=== PATIENT | female | born 1980 | race African-American/Black ===

== ENCOUNTER 2016-08-20 10:19 | Emergency (ER) | payer MEDICAID ==
[~2016-08-20] VITALS: Ht 157.5 cm; Wt 77.1 kg
[~2016-08-20 10:19] MED LIST: BLEPH-105 ML OP; IBUPROFEN600 MG ORAL; NKM; ZOFRAN ODT4 MG ORAL
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
[2016-08-20] MEDS ORDERED: Bacitracin Oint UD TOPIC ONE (11:00)
[2016-08-20] MEDS ORDERED: IBUPROFEN600 MG ORAL (12:58)
[2016-08-20] MEDS ORDERED: TRAMADOL HCL50 MG ORAL (12:58)
[2016-08-20 13:00] VITALS: BP 136/84
[2016-08-20 13:10] VITALS: BP 136/84
== END 2016-08-20 13:10 | disposition home or self-care (01) ==
LOC: EMR 11:13
DX: S09.90XA Unspecified injury of head, initial encounter (principal); S00.83XA Contusion of other part of head, initial encounter; S80.212A Abrasion, left knee, initial encounter; S80.211A Abrasion, right knee, initial encounter; S50.312A Abrasion of left elbow, initial encounter; Y08.89XA Assault by other specified means, initial encounter; Y92.9 Unspecified place or not applicable; Y99.8 Other external cause status
CPT/HCPCS: 99282

== ENCOUNTER 2017-04-20 00:50 | Emergency (ER) | payer MEDICAID ==
[~2017-04-20] VITALS: Ht 165.1 cm; Wt 72.6 kg
[~2017-04-20 00:50] MED LIST changes: +TRAMADOL HCL50 MG ORAL
[2017-04-20] MEDS ORDERED: Ketorolac 60mg Inj IM ONE (01:30)
[2017-04-20] MEDS ORDERED: IBUPROFEN600 MG ORAL (01:45)
[2017-04-20] MEDS ORDERED: PSEUDOEPHEDRINE60 MG PO (01:45)
--- NOTE | 2017-04-20 01:45 | Emergency Room Report ---
History of Present Illness General Chief Complaint: Headache Source: Patient Present Illness HPI Is a 36-year-old female with no past medical history. She does have family history of hypertension. Also with preeclampsia. She presents with a headache for the last day or so. Also with a sling and runny nose. No fever or chills. No nausea no vomiting. Tylenol is not helping. Denies any other complaint. No focal deficit. Allergies: Coded Allergies: No Known Allergies (Unverified , 05/11/13) Patient History Past Medical History: see triage record, old chart reviewed Past Surgical History: Pertinent Family History: none Social History: Denies: smoking Now: No Immunizations: other Reviewed Nursing Documentation: PMH: Agreed, PSxH: Agreed Nursing Documentation-PMH Past Medical History: No Stated History Review of Systems Eye: Denies: eye pain, blurred vision ENT: Reports: nose congestion, Denies: ear pain, throat swelling Respiratory: Denies: cough, shortness of breath Cardiovascular: Denies: chest pain, palpitations Gastrointestinal: Denies: abdominal pain, diarrhea, nausea, vomiting Musculoskeletal: Denies: back pain, joint pain Skin: Denies: rash Neurological: Reports: headache, Denies: numbness Endocrine: Denies: increased thirst, increased urine Hematologic/Lymphatic: Denies: easy bruising All Other Systems: negative except mentioned in HPI Physical Exam Vital Signs Date Time Temp Pulse Resp B/P (MAP) Pulse Ox O2 Delivery O2 Flow Rate FiO2 04/20/17 01:10 98.1 76 16 122/76 98 Room Air vitals normal Sp02 EP Interpretation: reviewed, normal General Appearance: well appearing, no apparent distress, alert Head: normocephalic, atraumatic Eyes: bilateral eye PERRL, bilateral eye EOMI ENT: hearing grossly normal, normal pharynx Neck: full range of motion, supple, no meningismus Respiratory: chest non-tender, lungs clear, normal breath sounds Cardiovascular #1: regular rate, rhythm, no murmur Gastrointestinal: normal bowel sounds, non tender, no mass, no organomegaly, no bruit, non-distended Musculoskeletal: back normal, gait/station normal, normal range of motion Psychiatric: mood/affect normal Skin: warm/dry Medical Decision Making Diagnostic Impression: Primary Impression: Sinus headache ER Course Patient with a headache most likely secondary sinus. No evidence of sepsis, TIA or CVA. No evidence of meningitis. We'll discharge home. Last Vital Signs Date Time Temp Pulse Resp B/P (MAP) Pulse Ox O2 Delivery O2 Flow Rate FiO2 04/20/17 01:10 98.1 76 16 122/76 98 Room Air Status: improved Disposition: HOME, SELF-CARE Condition: Stable Scripts Ibuprofen* (MOTRIN*) 600 Mg Tablet 600 MG ORAL THREE TIMES A DAY, #30 TAB 0 Refills Prov: NICKY DESHPANDE M.D. 04/20/17 Pseudoephedrine Hcl* (SUDAFED*) 60 Mg Tablet 60 MG PO Q6H, #20 TAB Prov: NICKY DESHPANDE M.D. 04/20/17 Patient Instructions: Sinus Headache Additional Instructions: Followup with your DrKoby in 7 days. Return if worse. NICKY DESHPANDE M.D. Apr 20, 2017 01:45
[2017-04-20 01:51] VITALS: BP 122/76
== END 2017-04-20 01:51 | disposition home or self-care (01) ==
LOC: EMR 01:25
DX: R51 Headache (principal)
CPT/HCPCS: 96372; 99284

== ENCOUNTER 2017-05-02 12:21 | Emergency (ER) | payer MEDICAID ==
[~2017-05-02] VITALS: Ht 157.5 cm; Wt 80.7 kg
[~2017-05-02 12:21] MED LIST changes: +PSEUDOEPHEDRINE60 MG PO
[2017-05-02 12:36] VITALS: BP 130/85
[2017-05-02] MEDS ORDERED: AMOXICILLIN500 MG ORAL ×2 (12:36→12:43)
--- NOTE | 2017-05-02 13:08 | Emergency Room Report ---
History of Present Illness General Chief Complaint: Earache Source: Patient Present Illness HPI The patient is a 36-year-old female presenting for ear pain. She was seen here 2 weeks prior and diagnosed with sinusitis. She states that the symptoms improved and ear pain began yesterday. Described as an 8/10 dull ache primary to the left ear. She states that hearing has decreased. She denies any radiating pain. She denies any provoking factors. She denies other symptoms including fever, chills, sore throat, cough Allergies: Coded Allergies: No Known Allergies (Unverified , 05/11/13) Patient History Past Medical History: see triage record Pertinent Family History: none Last Menstrual Period: last month Now: No Reviewed Nursing Documentation: PMH: Agreed, PSxH: Agreed Nursing Documentation-PMH Past Medical History: No History, Except For Review of Systems All Other Systems: negative except mentioned in HPI Physical Exam Vital Signs Date Time Temp Pulse Resp B/P (MAP) Pulse Ox O2 Delivery O2 Flow Rate FiO2 05/02/17 12:24 98.2 84 18 136/85 98 Room Air Sp02 EP Interpretation: reviewed, normal General Appearance: no apparent distress, alert, GCS 15, non-toxic Head: normocephalic, atraumatic Eyes: bilateral eye normal inspection, bilateral eye PERRL ENT: hearing grossly normal, normal pharynx, no angioedema, normal voice, other - Bilat TM bulging with erythema Neck: full range of motion, supple/symm/no masses Respiratory: chest non-tender, lungs clear, normal breath sounds, speaking full sentences Cardiovascular #1: regular rate, rhythm, no edema Musculoskeletal: back normal, gait/station normal, normal range of motion, non- tender Neurologic: alert, oriented x3, responsive, motor strength/tone normal, sensory intact, speech normal Psychiatric: judgement/insight normal, memory normal, mood/affect normal, no suicidal/homicidal ideation Skin: normal color, no rash, warm/dry, well hydrated Lymphatic: no adenopathy Medical Decision Making PA Attestation Dr. Anne is my supervising physician. Patient management was discussed with my supervising physician Diagnostic Impression: Primary Impression: Otitis media Qualified Codes: H66.90 - Otitis media, unspecified, unspecified ear ER Course The patient is a 36-year-old female presenting for ear pain Differential diagnosis include but not limited to otitis externa, otitis media, mastoiditis, sinusitis, pharyngitis Physical exam: Vitals within normal limits. No apparent distress HEENT exam: There is bilateral tympanic membrane erythema and bulging. External auditory canal unremarkable. No tenderness to palpation over tragus. No nasal discharge. No tonsillar edema or erythema. No exudate Lungs are clear to auscultation bilaterally The patient will be discharged home with a prescription for amoxicillin and will followup with primary doctor. ER precautions are given Last Vital Signs Date Time Temp Pulse Resp B/P (MAP) Pulse Ox O2 Delivery O2 Flow Rate FiO2 05/02/17 12:36 98.2 75 18 130/85 98 Room Air Status: improved Disposition: HOME, SELF-CARE Condition: Improved Scripts Amoxicillin* (AMOXIL*) 500 Mg Capsule 500 MG ORAL Q12HR, #20 CAP Prov: MARGARET BE 05/02/17 Referrals: NOT CHOSEN IPA/MD,REFERRING (PCP) Patient Instructions: Otitis Media, Adult, Earache Additional Instructions: I discussed my findings with the patient. All questions and concerns have been answered. Treatment and medication compliance have been addressed. I advised the patient that they need to follow up with PMD in 3-5 days. Return to ED if pain remains or worsens, cough worsens or remains, you notice blood in your sputum, you notice wheezing, you experience a fever, or if needed for any reason. Patient verbalized understanding of discharge instructions. MARGARET BE May 02, 2017 13:08
== END 2017-05-02 12:49 | disposition home or self-care (01) ==
LOC: EMR 12:40
DX: H66.93 Otitis media, unspecified, bilateral (principal)
CPT/HCPCS: 99283

== ENCOUNTER 2018-09-21 16:20 | Emergency (ER) | payer MEDICAID ==
[~2018-09-21] VITALS: Ht 157.5 cm; Wt 84.4 kg
[~2018-09-21 16:20] MED LIST changes: +AMOXICILLIN500 MG ORAL
[2018-09-21] MEDS ORDERED: Metoclopramide 10mg/2ml Inj IVP ONE (16:45)
[2018-09-21 17:06] VITALS: BP 143/86
--- NOTE | 2018-09-21 17:07 | NUR ---
ED Nurse Note:pt. c/o headache and nausea , blood and urine was sent to labs, VSS, given IV fluids and meds
[2018-09-21 17:18] LABS: BASOPHILS % (AUTO) 1.5 % (0.0-2.0); EOSINOPHILS % (AUTO) 1.5 % (0.0-3.0); HEMATOCRIT 36.2 % (37.0-47.0); LYMPHOCYTES % (AUTO) 36.5 % (20.0-45.0); MEAN CORPUSCULAR VOLUME 89 FL (80-99); NEUTROPHILS % (AUTO) 55.5 % (45.0-75.0); PLATELET COUNT 173 K/UL (150-450); RED BLOOD COUNT 4.05 M/UL (4.20-5.40); RED CELL DISTRIBUTION WIDTH 12.2 % (11.6-14.8)
[2018-09-21 17:21] LABS: APPEARANCE,URINE CLEAR; BILIRUBIN, URINE NEGATIVE (NEGATIVE); COLOR,URINE PALE YELLOW; GLUCOSE, URINE (UA) NEGATIVE (NEGATIVE); KETONES,URINE NEGATIVE (NEGATIVE); LEUKOCYTE ESTERASE ,URINE NEGATIVE (NEGATIVE); NITRITE,URINE NEGATIVE (NEGATIVE); PH,URINE 6 (4.5-8.0); PROTEIN,URINE NEGATIVE (NEGATIVE); UROBILINOGEN,URINE NORMAL MG/DL (0.0-1.0)
[2018-09-21 17:28] LABS: ANION GAP 7 mmol/L (5-15); BLOOD UREA NITROGEN 4 mg/dL (7-18); CALCIUM 9.3 MG/DL (8.5-10.1); CARBON DIOXIDE 29 MMOL/L (21-32); CHLORIDE 105 MMOL/L (98-107); CREATININE 0.7 MG/DL (0.55-1.30); POTASSIUM 3.4 MMOL/L (3.5-5.1); SODIUM 141 MMOL/L (136-145)
[2018-09-21 17:33] LABS: ALANINE AMINOTRANSFERASE 17 U/L (12-78); ALBUMIN 3.7 G/DL (3.4-5.0); ALBUMIN/GLOBULIN RATIO 1.1 (1.0-2.7); ALKALINE PHOSPHATASE 53 U/L (46-116); ASPARTATE AMINO TRANSFERASE 12 U/L (15-37); BILIRUBIN,TOTAL 0.3 MG/DL (0.2-1.0)
--- NOTE | 2018-09-21 17:35 | Emergency Room Report ---
History of Present Illness General Chief Complaint: Headache Source: Patient Present Illness HPI 37-year-old female presents ED for evaluation. Complaining of headache started 2 days ago. Pain is frontal, throbbing, 6 out of 10, nonradiating. Denies photophobia or blurry vision. Denies nausea or vomiting. Denies neck stiffness. States she's been taking [id number] medication, states symptoms will temporally subsides then returned. Denies fevers or chills. Denies cough or congestion. Denies ear ache or sore throat. No other aggravating relieving factors. Denies any other associated symptoms Allergies: Coded Allergies: No Known Allergies (Unverified , 05/11/13) Patient History Past Medical History: none Past Surgical History: none Pertinent Family History: none Social History: Denies: smoking, alcohol use, drug use Last Menstrual Period: 09/16/18 Now: No Immunizations: UTD Reviewed Nursing Documentation: PMH: Agreed; PSxH: Agreed Nursing Documentation-PMH Past Medical History: No History, Except For Review of Systems All Other Systems: negative except mentioned in HPI Physical Exam Vital Signs Date Time Temp Pulse Resp B/P (MAP) Pulse Ox O2 Delivery O2 Flow Rate FiO2 09/21/18 16:23 98.4 83 20 143/86 98 Room Air Sp02 EP Interpretation: reviewed, normal General Appearance: no apparent distress, alert, GCS 15, non-toxic Head: normocephalic, atraumatic Eyes: bilateral eye normal inspection, bilateral eye PERRL ENT: hearing grossly normal, normal pharynx, no angioedema, normal voice Neck: full range of motion, supple, no meningismus, supple/symm/no masses Respiratory: chest non-tender, lungs clear, normal breath sounds, speaking full sentences Cardiovascular #1: regular rate, rhythm, no edema Cardiovascular #2: 2+ carotid (R), 2+ carotid (L), 2+ radial (R), 2+ radial (L) , 2+ dorsalis pedis (R), 2+ dorsalis pedis (L) Gastrointestinal: normal bowel sounds, non tender, soft, non-distended, no guarding, no rebound Rectal: deferred Genitourinary: normal inspection, no CVA tenderness Musculoskeletal: back normal, gait/station normal, normal range of motion, non- tender Neurologic: alert, oriented x3, responsive, mattress and foundation sewer III-XII nml as tested, motor strength/tone normal, sensory intact, cerebellar normal, speech normal Psychiatric: judgement/insight normal, memory normal, mood/affect normal, no suicidal/homicidal ideation Reflexes: 3+ bicep (R), 3+ bicep (L), 3+ tricep (R), 3+ tricep (L), 3+ knee (R) , 3+ knee (L) Skin: normal color, no rash, warm/dry, well hydrated Lymphatic: no adenopathy Medical Decision Making Diagnostic Impression: Primary Impression: Headache Qualified Codes: R51 - Headache ER Course Hospital Course 37-year-old female presents to ED complaining of headache x 2 days. not relieved with OTC medications Differential diagnoses include: tension headache, migraine, dehydration, intracranial bleed Clinical course Patient placed on stretcher. After initial history and physical I ordered labs , IV fluids, Reglan, tylenol Labs reviewed- electrolytes okay, no leukocytosis, hemoglobin/hematocrit stable , UA ok Upon reassessment patient states pain has improved. No photophobia, no blurry vision. No known nuchal rigidity. No focal neurological deficits. I do not believe CT imaging indicate at this time Safe for discharge or close outpatient follow-up. States she has a PMD i. I feel this is a highly complex case requiring extensive working including EKG/Rhythm strip, Xray/CT/US, Blood/urine lab work, repeat exams while in ED, and administration of strong opiates/narcotics for pain control, admission to hospital or close patient follow up. Diagnosis - headache stable and discharged to home with Rx Fioricet. f/up with PMD. return to ED if symptoms recur/worsen. Labs Test 09/21/18 16:00 White Blood Count 7.0 K/UL (4.8-10.8) Red Blood Count 4.05 M/UL (4.20-5.40) Hemoglobin 12.0 G/DL (12.0-16.0) Hematocrit 36.2 % (37.0-47.0) Mean Corpuscular Volume 89 FL (80-99) Mean Corpuscular Hemoglobin 29.7 PG (27.0-31.0) Mean Corpuscular Hemoglobin Concent 33.2 G/DL (32.0-36.0) Red Cell Distribution Width 12.2 % (11.6-14.8) Platelet Count 173 K/UL (150-450) Mean Platelet Volume 7.2 FL (6.5-10.1) Neutrophils (%) (Auto) 55.5 % (45.0-75.0) Lymphocytes (%) (Auto) 36.5 % (20.0-45.0) Monocytes (%) (Auto) 5.0 % (1.0-10.0) Eosinophils (%) (Auto) 1.5 % (0.0-3.0) Basophils (%) (Auto) 1.5 % (0.0-2.0) Urine Color Pale yellow Urine Appearance Clear Urine pH 6 (4.5-8.0) Urine Specific [place] 1.020 (1.005-1.035) Urine Protein Negative (NEGATIVE) Urine Glucose (UA) Negative (NEGATIVE) Urine Ketones Negative (NEGATIVE) Urine Blood 1+ (NEGATIVE) Urine Nitrite Negative (NEGATIVE) Urine Bilirubin Negative (NEGATIVE) Urine Urobilinogen Normal MG/DL (0.0-1.0) Urine Leukocyte Esterase Negative (NEGATIVE) Urine RBC 2-4 /HPF (0 - 2) Urine WBC 0-2 /HPF (0 - 2) Urine Squamous Epithelial Cells Moderate /LPF (NONE/OCC) Urine Bacteria Occasional /HPF (NONE) Urine HCG, Qualitative Negative (NEGATIVE) Sodium Level 141 MMOL/L (136-145) Potassium Level 3.4 MMOL/L (3.5-5.1) Chloride Level 105 MMOL/L (98-107) Carbon Dioxide Level 29 MMOL/L (21-32) Anion Gap 7 mmol/L (5-15) Blood Urea Nitrogen 4 mg/dL (7-18) Creatinine 0.7 MG/DL (0.55-1.30) Estimat Glomerular Filtration Rate > 60 mL/min (>60) Glucose Level 110 MG/DL (74-106) Calcium Level 9.3 MG/DL (8.5-10.1) Total Bilirubin 0.3 MG/DL (0.2-1.0) Aspartate Amino Transf (AST/SGOT) 12 U/L (15-37) Alanine Aminotransferase (ALT/SGPT) 17 U/L (12-78) Alkaline Phosphatase 53 U/L (46-116) Total Protein 7.2 G/DL (6.4-8.2) Albumin 3.7 G/DL (3.4-5.0) Globulin 3.5 g/dL Albumin/Globulin Ratio 1.1 (1.0-2.7) Last Vital Signs Date Time Temp Pulse Resp B/P (MAP) Pulse Ox O2 Delivery O2 Flow Rate FiO2 09/21/18 17:06 98.4 67 20 143/86 98 Room Air Status: improved Disposition: HOME, SELF-CARE Condition: Stable Scripts Acetamin/Butalbital/Caffeine* (FIORICET*) 1 Ea Tab 1 TAB ORAL Q6H, #15 TAB 0 Refills Prov: Luisito Gill MD 09/21/18 Referrals: NON PHYSICIAN (PCP) Luisito Gill MD Sep 21, 2018 17:35
[2018-09-21] MEDS ORDERED: FIORICET1 EA ORAL (17:48)
[2018-09-21 18:04] VITALS: BP 143/86
--- NOTE | 2018-09-21 18:07 | NUR ---
ED Nurse Note:pt. received d/c instructions with prescription and left ER with steady gait
== END 2018-09-21 18:04 | disposition home or self-care (01) ==
LOC: EMR 16:55
DX: R51 Headache (principal)
CPT/HCPCS: 36415; 80053; 81003; 81025; 85025; 96374; 99284; J2765; J7040

== ENCOUNTER 2019-03-14 13:43 | Emergency (ER) | payer BC, MEDICAID ==
[~2019-03-14] VITALS: Ht 157.5 cm; Wt 83.9 kg
[~2019-03-14 13:43] MED LIST changes: +FIORICET1 EA ORAL
[2019-03-14 13:49] VITALS: BP 133/81
--- NOTE | 2019-03-14 13:55 | NUR ---
ED Nurse Note: Patient walked into ED c/o back pain since 03/11/19. patient reports she was bending her shoe ties and suddenly have back pain. patient reports it's gradually getting worse patient reports she is on her period, patient signed waiver.
[2019-03-14] MEDS ORDERED: Ketorolac 30mg Inj IM ONE (14:00)
[2019-03-14] MEDS ORDERED: Isovue-300 100ml vial INJ PRN (14:30)
[2019-03-14 15:08] LABS: BASOPHILS % (AUTO) 0.9 % (0.0-2.0); EOSINOPHILS % (AUTO) 1.8 % (0.0-3.0); HEMATOCRIT 36.4 % (37.0-47.0); HEMOGLOBIN 11.5 G/DL (12.0-16.0); LYMPHOCYTES % (AUTO) 42.3 % (20.0-45.0); MEAN CORPUSCULAR VOLUME 90 FL (80-99); MONOCYTES % (AUTO) 4.5 % (1.0-10.0); NEUTROPHILS % (AUTO) 50.5 % (45.0-75.0); PLATELET COUNT 241 K/UL (150-450); RED BLOOD COUNT 4.03 M/UL (4.20-5.40); RED CELL DISTRIBUTION WIDTH 13.1 % (11.6-14.8); WHITE BLOOD COUNT 7.6 K/UL (4.8-10.8)
[2019-03-14 15:11] LABS: APPEARANCE,URINE CLEAR; BILIRUBIN, URINE NEGATIVE (NEGATIVE); COLOR,URINE PALE YELLOW; GLUCOSE, URINE (UA) NEGATIVE (NEGATIVE); KETONES,URINE NEGATIVE (NEGATIVE); LEUKOCYTE ESTERASE ,URINE NEGATIVE (NEGATIVE); NITRITE,URINE NEGATIVE (NEGATIVE); PH,URINE 6.5 (4.5-8.0); PROTEIN,URINE 1+ (NEGATIVE); UROBILINOGEN,URINE NORMAL MG/DL (0.0-1.0)
[2019-03-14] MEDS ORDERED: Ketorolac 30mg Inj IV ONE (15:15)
[2019-03-14 15:17] LABS: ANION GAP 6 mmol/L (5-15); BLOOD UREA NITROGEN 14 mg/dL (7-18); CALCIUM 9.2 MG/DL (8.5-10.1); CARBON DIOXIDE 31 MMOL/L (21-32); CHLORIDE 105 MMOL/L (98-107); CREATININE 0.9 MG/DL (0.55-1.30); POTASSIUM 4.1 MMOL/L (3.5-5.1); SODIUM 142 MMOL/L (136-145)
[2019-03-14 15:22] LABS: ALANINE AMINOTRANSFERASE 12 U/L (12-78); ALBUMIN 4.2 G/DL (3.4-5.0); ALBUMIN/GLOBULIN RATIO 1.3 (1.0-2.7); ALKALINE PHOSPHATASE 65 U/L (46-116); ASPARTATE AMINO TRANSFERASE 13 U/L (15-37); BILIRUBIN,TOTAL 0.2 MG/DL (0.2-1.0)
--- NOTE | 2019-03-14 16:10 | NUR ---
ED Nurse Note: patient went to CT
--- NOTE | 2019-03-14 17:01 | Diagnostic Imaging Report ---
EXAM: CT Abdomen and Pelvis With Intravenous Contrast CLINICAL HISTORY: PAIN TECHNIQUE: Axial computed tomography images of the abdomen and pelvis with intravenous contrast. CTDI is 16.82 mGy and DLP is 860 mGy-cm. One or more of the following dose reduction techniques were used: automated exposure control, adjustment of the mA and/or kV according to patient size, use of iterative reconstruction technique. Coronal and sagittal reformatted images were created and reviewed. COMPARISON: CT abdomen and pelvis dated 04/18/11 FINDINGS: Lung bases: Unremarkable. No consolidation. No effusions. ABDOMEN: Liver: Unremarkable. No suspicious parenchymal lesions Gallbladder and bile ducts: Unremarkable. No calcified stones. No ductal dilation. Pancreas: Unremarkable. No mass. No ductal dilation. Spleen: Unremarkable. No splenomegaly. Adrenals: Unremarkable. No mass. Kidneys and ureters: Pelvic left kidney. Right kidney appears unremarkable. No hydronephrosis. Stomach and bowel: Unremarkable. No obstruction. No mucosal thickening. PELVIS: Appendix: No findings to suggest acute appendicitis. Bladder: Unremarkable. No visible stones. Reproductive: The uterus and ovaries appear unremarkable. ABDOMEN and PELVIS: Intraperitoneal space: Unremarkable. No free air. No significant fluid collection. Bones/joints: No acute fracture. No dislocation. Soft tissues: Mild subcutaneous stranding throughout the anterior abdomen, nonspecific. No loculated fluid collections. Vasculature: Unremarkable. No abdominal aortic aneurysm. Lymph nodes: Unremarkable. No enlarged lymph nodes. IMPRESSION: 1. Mild subcutaneous stranding throughout the anterior abdomen, nonspecific. No loculated fluid collections. 2. Otherwise no acute findings in the abdomen or pelvis. No bowel obstruction or bowel wall thickening. Gallbladder and appendix appear unremarkable. 3. Pelvic left kidney. No hydronephrosis. Right kidney appears normal.
--- NOTE | 2019-03-14 17:05 | Emergency Room Report ---
History of Present Illness General Chief Complaint: Back Pain-No Injury Source: Medical Record Present Illness HPI 38-year-old female with no significant past medical history here complaining of 1 week of new onset of of acute low back pain without any fall or injury. Patient reports that she was bending down trying to tie her shoe as that she all of a sudden felt a 10 out of 10 pain in her lumbar region denying any pain radiation, or tingling and numbness. Denies saddle paresthesia, urinary or bowel incontinence. Denies dysuria urinary frequency. Patient reports that about a month ago she had liposuction and has finished her medication and her antibiotics. Patient denies any abdominal pain and has an upcoming appointment with her surgeon this week. Denies fever and chills, chest pain, shortness of breath, palpitation, and other associated symptoms. Has not taken medication for her pain. Patient appears stable in mild distress when walking and laying down. Allergies: Coded Allergies: No Known Allergies (Unverified , 05/11/13) Patient History Past Medical History: see triage record Past Surgical History: unable to obtain Pertinent Family History: none Last Menstrual Period: 03/12/19 Now: No Immunizations: UTD Reviewed Nursing Documentation: PMH: Agreed; PSxH: Agreed Nursing Documentation-PMH Past Medical History: No History, Except For Review of Systems All Other Systems: negative except mentioned in HPI Physical Exam Vital Signs Date Time Temp Pulse Resp B/P (MAP) Pulse Ox O2 Delivery O2 Flow Rate FiO2 03/14/19 13:49 98.2 83 18 133/81 97 Room Air Sp02 EP Interpretation: reviewed, normal General Appearance: normal inspection, well appearing, no apparent distress, alert Head: normocephalic, atraumatic Eyes: bilateral eye normal inspection, bilateral eye PERRL ENT: normal ENT inspection, hearing grossly normal, normal pharynx Neck: normal inspection, full range of motion, supple, thyroid normal, supple/ symm/no masses Respiratory: normal inspection, chest non-tender, lungs clear, no rhonchi, no wheezing Cardiovascular #1: normal inspection, regular rate, rhythm, no gallop, no murmur, normal capillary refill Gastrointestinal: normal inspection, non tender, soft, no mass, no peritonitis , non-distended, other - No erythema or cellulitis of the surgical site Genitourinary: no CVA tenderness Musculoskeletal: normal inspection, back normal, digits/nails normal, gait/ station normal Neurologic: alert Psychiatric: normal inspection, judgement/insight normal, memory normal Skin: no rash Lymphatic: normal inspection, no adenopathy Medical Decision Making PA Attestation All my diagnosis and treatment plans were reviewed ad discussed with my supervising physician Dr. Gill Diagnostic Impression: Primary Impression: Lumbar strain ER Course 38-year-old female with no significant past medical history here complaining of 1 week of new onset of of acute low back pain without any fall or injury. Patient reports that she was bending down trying to tie her shoe as that she all of a sudden felt a 10 out of 10 pain in her lumbar region denying any pain radiation, or tingling and numbness. Denies saddle paresthesia, urinary or bowel incontinence. Denies dysuria urinary frequency. Patient reports that about a month ago she had liposuction and has finished her medication and her antibiotics. Patient denies any abdominal pain and has an upcoming appointment with her surgeon this week. Denies fever and chills, chest pain, shortness of breath, palpitation, and other associated symptoms. Has not taken medication for her pain. Patient appears stable in mild distress when walking and laying down. Ddx considered but are not limited to: Lumbar spine sprain, strain, fracture, contusion, neuropathy Vital signs: are WNL, pt. is afebrile H&PE are most consistent with: Ddx considered but are not limited to: Lumbar spine strain, lumbar spine fracture, lumbar spine sprian Vital signs: are WNL, pt. is afebrile H&PE are most consistent with: Ddx considered but are not limited to: Lumbar spine strain, lumbar spine fracture, lumbar spine sprian Vital signs: are WNL, pt. is afebrile H&PE are most consistent with: lumbar spine strain ORDERS: CT abdomen pelvis was ordered in order to rule out any complications post liposuction that could be contributing to pain in the lumbar region. Robaxin, naproxen ED INTERVENTIONS: Toradol DISCHARGE: At this time pt. is stable for d/c to home. Will provide printed patient care instructions, and any necessary prescriptions. Care plan and follow up instructions have been discussed with the patient prior to discharge. Follow-up with your primary care provider and your surgeon if any complication worsening symptoms return to the emergency room. Alternate between icing and heating the affected area avoid strenuous physical activity due to low mobility post your surgery you are at high risk for straining your back muscles. CT/MRI/US Diagnostic Results CT/MRI/US Diagnostic Results : Imaging Test Ordered: CT abdomen and pelvis with contrast Impression IMPRESSION: 1. Mild subcutaneous stranding throughout the anterior abdomen, nonspecific. No loculated fluid collections. 2. Otherwise no acute findings in the abdomen or pelvis. No bowel obstruction or bowel wall thickening. Gallbladder and appendix appear unremarkable. 3. Pelvic left kidney. No hydronephrosis. Right kidney appears normal. Last Vital Signs Date Time Temp Pulse Resp B/P (MAP) Pulse Ox O2 Delivery O2 Flow Rate FiO2 03/14/19 15:41 98.2 03/14/19 13:49 90 18 133/81 (98) 97 Room Air Disposition: HOME, SELF-CARE Condition: Stable Scripts Naproxen* (NAPROXEN*) 500 Mg Tablet 500 MG ORAL TWICE A DAY, #30 TAB Prov: Glenn Alanis 03/14/19 Methocarbamol* (ROBAXIN*) 500 Mg Tablet 500 MG PO TID, #21 TAB 0 Refills Prov: Glenn Alanis 03/14/19 Referrals: NON PHYSICIAN (PCP) Patient Instructions: Back Pain, Adult, Lumbosacral Strain Additional Instructions: Take medication as directed avoid strenuous physical activity alternating icing and heating the affected area follow-up with your surgeon at this time your back pain is secondary to complications with surgery that you have a month ago. If worsening symptoms return to the emergency room. Glenn Alanis Mar 14, 2019 17:05
[2019-03-14] MEDS ORDERED: NAPROXEN500 M2 ORAL (17:06)
[2019-03-14] MEDS ORDERED: ROBAXIN500 MG PO (17:06)
[2019-03-14 17:15] VITALS: BP 133/81
--- NOTE | 2019-03-14 17:15 | NUR ---
ER DISCHARGE NOTE: Patient is cleared to be discharged per LUCY QUEZADA, pt is aox4, on room air, with stable vital signs. pt was given dc and prescription instructions, pt was able to verbalize understanding, pt id band removed without complications. pt is able to ambulate with steady gait. pt took all belongings.
--- NOTE | 2019-03-14 17:15 | NUR ---
ER DISCHARGE NOTE: IV REMOVED WITHOUT COMPLICATION.
== END 2019-03-14 17:15 | disposition home or self-care (01) ==
LOC: EMR 14:20
DX: S39.012A Strain of muscle, fascia and tendon of lower back, initial encounter (principal); X50.1XXA Overexertion from prolonged static or awkward postures, initial encounter; Y92.9 Unspecified place or not applicable
CPT/HCPCS: 36415; 74177; 80053; 81001; 85025; 96372; 96374; 99284; J1885; Q9967

== ENCOUNTER 2019-07-21 11:23 | Emergency (ER) | payer BC, MEDICAID ==
[~2019-07-21] VITALS: Ht 157.5 cm; Wt 80.7 kg
[~2019-07-21 11:23] MED LIST changes: +NAPROXEN500 M2 ORAL; +ROBAXIN500 MG PO
--- NOTE | 2019-07-21 11:31 | NUR ---
ED Nurse Note: Pt ambulated to the ED with the c/o of Nausea and Vomiting x 1 started this morning. Pt mentioned she has hx of HTN, took med this morning. ERMD on bedside. Obtained urine specimen, sent to labs. Will continue to monitor.
[2019-07-21 11:35] VITALS: BP 124/92
[2019-07-21] MEDS ORDERED: AMLODIPINE BES2.5 MG ORAL (11:35)
--- NOTE | 2019-07-21 11:40 | NUR ---
ED Nurse Note: Pt was hooked to bus driver/monitor. Established IV line on LT AC with 20G, intact and patent. Blood specimen obtained, sent to labs.
--- NOTE | 2019-07-21 11:44 | Emergency Room Report ---
History of Present Illness General Chief Complaint: Nausea Source: Patient Present Illness HPI 38-year-old female has no history of hypertension presents with nausea vomiting and diarrhea as well as abdominal cramps no aggravating alleviating factor severity is mild, started yesterday, no fevers no chills no cough no congestion , patient has been tolerating p.o. however she is felt very nauseous, patient presents for evaluation. No dysuria Allergies: Coded Allergies: No Known Allergies (Unverified , 05/11/13) Patient History Past Medical History: see triage record Last Menstrual Period: 07/21/19 Now: No Reviewed Nursing Documentation: PMH: Agreed; PSxH: Agreed Nursing Documentation-PMH Past Medical History: No History, Except For Hx Hypertension: Yes Review of Systems All Other Systems: negative except mentioned in HPI Physical Exam Vital Signs Date Time Temp Pulse Resp B/P (MAP) Pulse Ox O2 Delivery O2 Flow Rate FiO2 07/21/19 11:30 98.4 95 16 125/91 (102) 100 Room Air Sp02 EP Interpretation: reviewed, normal General Appearance: well appearing, no apparent distress, alert Head: normocephalic, atraumatic Eyes: bilateral eye PERRL, bilateral eye EOMI ENT: uvula midline, dry mucus membranes Neck: supple, thyroid normal, supple/symm/no masses Respiratory: lungs clear, no respiratory distress, no retraction, no accessory muscle use Cardiovascular #1: normal peripheral pulses, regular rate, rhythm, no edema, no gallop, no murmur Gastrointestinal: non tender, soft, no guarding, no rebound Musculoskeletal: normal inspection Neurologic: alert, oriented x3 Psychiatric: mood/affect normal Skin: no rash, warm/dry Medical Decision Making Diagnostic Impression: Primary Impression: Nausea and vomiting in adult patient Additional Impressions: Dehydration Diarrhea Qualified Codes: R19.7 - Diarrhea, unspecified ER Course 38 year old female presents with acute nausea and vomiting, and diarrhea. ddx includes gastroenteritis, diverticulitis, appendicitis Patient with soft abdomen non tender Patient given rehydration, antiemetics, no vomiting while in ED Most likely gastro Dispo home w/ return precautions Laboratory Tests Test 07/21/19 11:30 07/21/19 12:00 Urine Color Pale yellow Urine Appearance Clear Urine pH 7 (4.5-8.0) Urine Specific [place] 1.005 (1.005-1.035) Urine Protein Negative (NEGATIVE) Urine Glucose (UA) Negative (NEGATIVE) Urine Ketones Negative (NEGATIVE) Urine Blood Negative (NEGATIVE) Urine Nitrite Negative (NEGATIVE) Urine Bilirubin Negative (NEGATIVE) Urine Urobilinogen Normal MG/DL (0.0-1.0) Urine Leukocyte Esterase Negative (NEGATIVE) Urine HCG, Qualitative Negative (NEGATIVE) White Blood Count 4.6 K/UL (4.8-10.8) L Red Blood Count 4.93 M/UL (4.20-5.40) Hemoglobin 13.8 G/DL (12.0-16.0) Hematocrit 42.4 % (37.0-47.0) Mean Corpuscular Volume 86 FL (80-99) Mean Corpuscular Hemoglobin 27.9 PG (27.0-31.0) Mean Corpuscular Hemoglobin Concent 32.5 G/DL (32.0-36.0) Red Cell Distribution Width 13.3 % (11.6-14.8) Platelet Count 200 K/UL (150-450) Mean Platelet Volume 7.4 FL (6.5-10.1) Neutrophils (%) (Auto) 53.4 % (45.0-75.0) Lymphocytes (%) (Auto) 41.5 % (20.0-45.0) Monocytes (%) (Auto) 2.9 % (1.0-10.0) Eosinophils (%) (Auto) 1.0 % (0.0-3.0) Basophils (%) (Auto) 1.2 % (0.0-2.0) Sodium Level 140 MMOL/L (136-145) Potassium Level 4.6 MMOL/L (3.5-5.1) Chloride Level 101 MMOL/L (98-107) Carbon Dioxide Level 32 MMOL/L (21-32) Anion Gap 8 mmol/L (5-15) Blood Urea Nitrogen 10 mg/dL (7-18) Creatinine 0.8 MG/DL (0.55-1.30) Estimate Glomerular Filtration Rate > 60 mL/min (>60) Glucose Level 101 MG/DL (74-106) Calcium Level 8.9 MG/DL (8.5-10.1) Total Bilirubin 0.7 MG/DL (0.2-1.0) Aspartate Amino Transferase (AST) 32 U/L (15-37) Alanine Aminotransferase (ALT) 20 U/L (12-78) Alkaline Phosphatase 71 U/L (46-116) Total Protein 8.5 G/DL (6.4-8.2) H Albumin 4.2 G/DL (3.4-5.0) Globulin 4.3 g/dL Albumin/Globulin Ratio 1.0 (1.0-2.7) Lipase 169 U/L (73-393) Last Vital Signs Date Time Temp Pulse Resp B/P (MAP) Pulse Ox O2 Delivery O2 Flow Rate FiO2 07/21/19 11:30 98.4 95 16 125/91 (102) 100 Room Air Disposition: HOME, SELF-CARE Condition: Stable Scripts Ondansetron (Zofran) 4 Mg Tablet 4 MG ORAL Q8H PRN for Nausea & Vomiting, #10 TAB 0 Refills Prov: Dakota Greco MD 07/21/19 Referrals: [facility] Departure Forms: Return to Work Return to Work Date: Jul 24, 2019 Patient Instructions: Dehydration, Adult, Diarrhea, Adult, [id number], Food Choices to Help Relieve Diarrhea, Adult, Nausea and Vomiting, Adult Additional Instructions: The patient was provided with discharge instructions, notified to follow-up with a primary care doctor and or specialist in the next 24-48 hours, and to return to the ED if they have worsening of their symptoms. Please note that this report is being documented using [employer] technology. This can lead to erroneous entry secondary to incorrect interpretation by the dictating instrument. Dakota Greco MD Jul 21, 2019 11:44
[2019-07-21] MEDS ORDERED: Mylanta II UD 30ml ORAL ONE (11:45)
[2019-07-21] MEDS ORDERED: ZOFRAN4 MG ORAL (11:48)
--- NOTE | 2019-07-21 12:00 | NUR ---
ED Nurse Note: Pt still on stable condition. Started on IV hydration of NS 1 liter. Meds given. Will continue to monitor.
[2019-07-21 12:22] LABS: BASOPHILS % (AUTO) 1.2 % (0.0-2.0); HEMATOCRIT 42.4 % (37.0-47.0); HEMOGLOBIN 13.8 G/DL (12.0-16.0); LYMPHOCYTES % (AUTO) 41.5 % (20.0-45.0); MEAN CORPUSCULAR VOLUME 86 FL (80-99); MONOCYTES % (AUTO) 2.9 % (1.0-10.0); NEUTROPHILS % (AUTO) 53.4 % (45.0-75.0); PLATELET COUNT 200 K/UL (150-450); RED BLOOD COUNT 4.93 M/UL (4.20-5.40); RED CELL DISTRIBUTION WIDTH 13.3 % (11.6-14.8); WHITE BLOOD COUNT 4.6 K/UL (4.8-10.8)
[2019-07-21 12:36] LABS: ANION GAP 8 mmol/L (5-15); BLOOD UREA NITROGEN 10 mg/dL (7-18); CALCIUM 8.9 MG/DL (8.5-10.1); CARBON DIOXIDE 32 MMOL/L (21-32); CHLORIDE 101 MMOL/L (98-107); CREATININE 0.8 MG/DL (0.55-1.30); POTASSIUM 4.6 MMOL/L (3.5-5.1); SODIUM 140 MMOL/L (136-145)
[2019-07-21 12:42] LABS: ALANINE AMINOTRANSFERASE 20 U/L (12-78); ALBUMIN 4.2 G/DL (3.4-5.0); ALKALINE PHOSPHATASE 71 U/L (46-116); ASPARTATE AMINO TRANSFERASE 32 U/L (15-37); BILIRUBIN,TOTAL 0.7 MG/DL (0.2-1.0)
[2019-07-21 12:43] LABS: APPEARANCE,URINE CLEAR; BILIRUBIN, URINE NEGATIVE (NEGATIVE); COLOR,URINE PALE YELLOW; GLUCOSE, URINE (UA) NEGATIVE (NEGATIVE); KETONES,URINE NEGATIVE (NEGATIVE); LEUKOCYTE ESTERASE ,URINE NEGATIVE (NEGATIVE); NITRITE,URINE NEGATIVE (NEGATIVE); PH,URINE 7 (4.5-8.0); PROTEIN,URINE NEGATIVE (NEGATIVE); UROBILINOGEN,URINE NORMAL MG/DL (0.0-1.0)
--- NOTE | 2019-07-21 12:50 | NUR ---
ED Nurse Note: Pt still on stable condition; VSS. Denied pain or discomfort. Per ERMD labs are clear. Pt ready for discharge on hydration is completely consumed.
[2019-07-21 13:05] VITALS: BP 130/84
--- NOTE | 2019-07-21 13:05 | NUR ---
ER DISCHARGE NOTE: Pt is cleared to be discharged per ERMD, pt is aox4, on room air, with stable vital signs. pt was given dc and prescription instructions, pt was able to verbalize understanding, pt id band and iv site removed without complications. pt is able to ambulate with steady gait. pt took all belongings.
== END 2019-07-21 13:05 | disposition home or self-care (01) ==
LOC: EMR 11:44
DX: R11.2 Nausea with vomiting, unspecified (principal); E86.0 Dehydration; R19.7 Diarrhea, unspecified; I10 Essential (primary) hypertension
CPT/HCPCS: 36415; 80053; 81003; 81025; 83690; 85025; 96361; 96374; J2405; J7030; Z7502; 99284

== ENCOUNTER 2020-04-07 20:11 | Emergency (ER) | payer MEDICAID ==
[~2020-04-07] VITALS: Ht 157.5 cm; Wt 90.7 kg
[~2020-04-07 20:11] MED LIST changes: +AMLODIPINE BES2.5 MG ORAL; +ZOFRAN4 MG ORAL
[2020-04-07 20:40] VITALS: BP 165/117
--- NOTE | 2020-04-07 21:00 | Emergency Room Report ---
History of Present Illness General Chief Complaint: General Complaint Source: Patient Present Illness HPI Disclaimer: Please note that this report is being documented using [employer] technology. This can lead to erroneous entry secondary to incorrect interpretation by the dictating instrument. HPI: 30-year-old female with history of hypertension presents for evaluation of elevated blood pressure readings at home. Patient used a wrist sphygmomanometer and found a pressure of 200 systolic prior to arrival. Denied headache, vision changes, chest pain, palpitations, shortness of breath, back pain, lightheadedness or any other symptoms. She has a history of hypertension takes 5 mg amlodipine. She has been without her medication for 4 days and had it refilled today. She took 2.5 mg approximately 3 hours ago. 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 EOMI. Resp: Normal work of breathing Skin: Intact. No abrasions, laceration or rash over the exposed skin MSK: Normal tone and bulk. Moving all extremities. No obvious deformity. Neuro: Awake and alert. Mentating appropriately Medical Decision Making Diagnostic Impression: Primary Impression: Asymptomatic hypertension ER Course 39-year-old female presents for evaluation of asymptomatic hypertension. She has been no up with her medications for 4 days. No acute distress, no symptoms reported. She arrives with improving blood pressures; initially was 165/117. Both are below the threshold for hypertensive urgency. Patient is given oral clonidine with rapid and significant improvement in blood pressure readings. Remains asymptomatic. No indication for work-up at this time. She is stable for outpatient follow-up. She will follow-up with her PMD discuss current antihypertensive medication regimen. No other concerns from patient at this time. Instructed to return with new or worsening symptoms. She understands and agrees with this treatment plan. Last Vital Signs Date Time Temp Pulse Resp B/P (MAP) Pulse Ox O2 Delivery O2 Flow Rate FiO2 04/07/20 20:52 165/117 04/07/20 20:40 88 18 04/07/20 20:40 98.8 99 Disposition: HOME, SELF-CARE Condition: Stable Referrals: NOT CHOSEN IPA/,REFERRING (PCP) Raghu Callaway MD Apr 07, 2020 21:00
[2020-04-07 21:15] VITALS: BP 148/87
[2020-04-07 21:25] VITALS: BP 148/87
== END 2020-04-07 21:25 | disposition home or self-care (01) ==
LOC: EMR 20:39
DX: I10 Essential (primary) hypertension (principal)
CPT/HCPCS: 99282

== ENCOUNTER 2020-07-03 02:56 | Emergency (ER) | payer MEDICAID ==
[~2020-07-03] VITALS: Ht 157.5 cm; Wt 83.9 kg
--- NOTE | 2020-07-03 03:15 | NUR ---
ED Nurse Note: Recieved pt walk in from home, here with c/o all week not feeling well, states had chills on saturday and now with generlized weakness, pt denies fevers but did not check due to feeling cold, pt denies chest pain, or any pain, no sob or labored breathing noted, pt gave urine, immediately gowned and placed on cardiac monitoring, MD at bedside, will resume care as ordered and continue to closely monitor.
--- NOTE | 2020-07-03 03:34 | Emergency Room Report ---
History of Present Illness General Chief Complaint: Generalized Weakness Source: Patient Present Illness HPI 39-year-old female with a history of hypertension on amlodipine here with generalized malaise and subjective chills. Patient says that she has been having symptoms for the past 3 days. Said that she became anxious tonight and could not sleep and so that prompted her to come to the emergency department. Has been taking ibuprofen intermittently for her symptoms with intermittent relief. Has also been taking [id number] homeopathic probiotics. Denies headaches, vision changes, fevers, chest pain, palpitations, cough, shortness of breath, back pain, abdominal pain, nausea, vomiting, diarrhea, dysuria. Allergies: Coded Allergies: No Known Allergies (Unverified , 05/11/13) COVID-19 Screening Contact w/high risk pt: No Experienced COVID-19 symptoms?: No COVID-19 Testing performed SUPERVISOR FELTING: No Patient History Last Menstrual Period: 06/19/2020 Now: No : 4 Para: 3 Nursing Documentation-[facility] Past Medical History: No History, Except For Hx Hypertension: Yes Review of Systems All Other Systems: negative except mentioned in HPI Physical Exam Vital Signs Date Time Temp Pulse Resp B/P (MAP) Pulse Ox O2 Delivery O2 Flow Rate FiO2 07/03/20 02:57 98.1 97 16 155/85 (108) 98 Room Air Sp02 EP Interpretation: reviewed, normal General Appearance: no apparent distress, alert, non-toxic Head: normocephalic, atraumatic Eyes: bilateral eye normal inspection, bilateral eye PERRL ENT: hearing grossly normal, normal pharynx, no angioedema, normal voice Neck: full range of motion, supple/symm/no masses Respiratory: chest non-tender, lungs clear, normal breath sounds, speaking full sentences Cardiovascular #1: regular rate, rhythm, no edema Cardiovascular #2: 2+ carotid (R), 2+ carotid (L), 2+ radial (R), 2+ radial (L), 2+ dorsalis pedis (R), 2+ dorsalis pedis (L) Gastrointestinal: normal bowel sounds, non tender, soft, non-distended, no guarding, no rebound Rectal: deferred Genitourinary: normal inspection, no CVA tenderness Musculoskeletal: back normal, normal range of motion, gait/station normal, non- tender Neurologic: alert, motor strength/tone normal, oriented x3, sensory intact, responsive, speech normal Psychiatric: judgement/insight normal, memory normal, mood/affect normal, no suicidal/homicidal ideation Lymphatic: no adenopathy Medical Decision Making Diagnostic Impression: Primary Impression: Generalized weakness Additional Impressions: Pneumonia Pulmonary nodule ER Course EKG: NSR, no ischemia, intervals WNL. No ectopy. Heart rate 97 bpm. QTc 482 Rhythm strip: patient monitored for arrhythmias - no malignant dysrhythmias, runs of PVCs, nor pauses noted Laboratory Tests Test 07/03/20 03:20 White Blood Count 4.9 K/UL (4.8-10.8) Red Blood Count 4.23 M/UL (4.20-5.40) Hemoglobin 12.4 G/DL (12.0-16.0) Hematocrit 39.0 % (37.0-47.0) Mean Corpuscular Volume 92 FL (80-99) Mean Corpuscular Hemoglobin 29.3 PG (27.0-31.0) Mean Corpuscular Hemoglobin Concent 31.8 G/DL (32.0-36.0) L Red Cell Distribution Width 13.5 % (11.6-14.8) Platelet Count 177 K/UL (150-450) Mean Platelet Volume 7.9 FL (6.5-10.1) Neutrophils (%) (Auto) 38.2 % (45.0-75.0) L Lymphocytes (%) (Auto) 53.0 % (20.0-45.0) H Monocytes (%) (Auto) 6.6 % (1.0-10.0) Eosinophils (%) (Auto) 1.4 % (0.0-3.0) Basophils (%) (Auto) 0.8 % (0.0-2.0) Urine Color Pale yellow Urine Appearance Clear Urine pH 7 (4.5-8.0) Urine Specific [place] 1.010 (1.005-1.035) Urine Protein Negative (NEGATIVE) Urine Glucose (UA) Negative (NEGATIVE) Urine Ketones Negative (NEGATIVE) Urine Blood Negative (NEGATIVE) Urine Nitrite Negative (NEGATIVE) Urine Bilirubin Negative (NEGATIVE) Urine Urobilinogen Normal MG/DL (0.0-1.0) Urine Leukocyte Esterase Negative (NEGATIVE) Urine HCG, Qualitative Negative (NEGATIVE) Sodium Level 138 MMOL/L (136-145) Potassium Level 3.5 MMOL/L (3.5-5.1) Chloride Level 102 MMOL/L (98-107) Carbon Dioxide Level 29 MMOL/L (21-32) Anion Gap 7 mmol/L (5-15) Blood Urea Nitrogen 12 mg/dL (7-18) Creatinine 1.0 MG/DL (0.55-1.30) Estimated Glomerular Filtration Rate > 60 mL/min (>60) Glucose Level 109 MG/DL (74-106) H Calcium Level 8.1 MG/DL (8.5-10.1) L Total Bilirubin 0.2 MG/DL (0.2-1.0) Aspartate Amino Transferase (AST) 15 U/L (15-37) Alanine Aminotransferase (ALT) 18 U/L (12-78) Alkaline Phosphatase 59 U/L (46-116) Total Protein 7.2 G/DL (6.4-8.2) Albumin 3.7 G/DL (3.4-5.0) Globulin 3.5 g/dL Albumin/Globulin Ratio 1.1 (1.0-2.7) Lipase 201 U/L (73-393) EXAM: XR Chest, 1 View CLINICAL HISTORY: COUGH TECHNIQUE: Frontal view of the chest. COMPARISON: Chest x-ray 04/30/2011 FINDINGS/ IMPRESSION: Small nodular opacities of the right lower thorax are identified, also to a lesser extent of the left lower thorax/lingula. These findings may reflect pneumonia in the appropriate clinical setting. Chest CT can be obtained for better characterization. Follow-up imaging is recommended in 6 weeks to evaluate for stability versus resolution. There is no significant pleural effusion identified. There is no pneumothorax. The heart size is within normal limits. 39-year-old female here with 2 days of chills. Patient had normal vital signs in the emergency department and was afebrile. Chest x-ray showed small nodular opacities of the right lower thorax. Suspected possible pneumonia. I told the patient that she need to follow-up with her primary care provider or come back to the emergency department in several weeks to evaluate for stability versus resolution. She expressed understanding. CBC, CMP unremarkable. EKG normal. test negative. Urinalysis negative. Patient was given prescription for doxycycline and told to come back to the emergency department if she has any worsening symptoms, otherwise assay for follow-up as an outpatient with her [facility] provider. Discharged in stable condition. Last Vital Signs Date Time Temp Pulse Resp B/P (MAP) Pulse Ox O2 Delivery O2 Flow Rate FiO2 07/03/20 02:57 98.1 97 16 155/85 (108) 98 Room Air Scripts Doxycycline Monohydrate* (DOXYCYCLINE MONOHYDRATE*) 100 Mg Capsule 100 MG ORAL Q12H, #14 CAP 0 Refills Prov: Farzad Reyes M.D. 07/03/20 Farzad Reyes M.D. Jul 03, 2020 03:34
[2020-07-03 04:03] LABS: APPEARANCE,URINE CLEAR; BASOPHILS % (AUTO) 0.8 % (0.0-2.0); BILIRUBIN, URINE NEGATIVE (NEGATIVE); COLOR,URINE PALE YELLOW; EOSINOPHILS % (AUTO) 1.4 % (0.0-3.0); GLUCOSE, URINE (UA) NEGATIVE (NEGATIVE); HEMOGLOBIN 12.4 G/DL (12.0-16.0); KETONES,URINE NEGATIVE (NEGATIVE); LEUKOCYTE ESTERASE ,URINE NEGATIVE (NEGATIVE); MEAN CORPUSCULAR VOLUME 92 FL (80-99); MONOCYTES % (AUTO) 6.6 % (1.0-10.0); NEUTROPHILS % (AUTO) 38.2 % (45.0-75.0); NITRITE,URINE NEGATIVE (NEGATIVE); PH,URINE 7 (4.5-8.0); PLATELET COUNT 177 K/UL (150-450); PROTEIN,URINE NEGATIVE (NEGATIVE); RED BLOOD COUNT 4.23 M/UL (4.20-5.40); RED CELL DISTRIBUTION WIDTH 13.5 % (11.6-14.8); UROBILINOGEN,URINE NORMAL MG/DL (0.0-1.0); WHITE BLOOD COUNT 4.9 K/UL (4.8-10.8)
[2020-07-03 04:15] LABS: ANION GAP 7 mmol/L (5-15); BLOOD UREA NITROGEN 12 mg/dL (7-18); CALCIUM 8.1 MG/DL (8.5-10.1); CARBON DIOXIDE 29 MMOL/L (21-32); CHLORIDE 102 MMOL/L (98-107); POTASSIUM 3.5 MMOL/L (3.5-5.1); SODIUM 138 MMOL/L (136-145)
--- NOTE | 2020-07-03 04:15 | NUR ---
ED Nurse Note: Pt continues to rest quietly in bed, given oral water, tolerated well, no nausea or vomiting, v/s stable, continues to deny pain, no changes or increased distress, pt states "im starting to feel better already", pt ambulated to bathroom with steady gait, will continue to monitor while waiting for results.
[2020-07-03 04:19] LABS: ALANINE AMINOTRANSFERASE 18 U/L (12-78); ALBUMIN 3.7 G/DL (3.4-5.0); ALBUMIN/GLOBULIN RATIO 1.1 (1.0-2.7); ALKALINE PHOSPHATASE 59 U/L (46-116); ASPARTATE AMINO TRANSFERASE 15 U/L (15-37); BILIRUBIN,TOTAL 0.2 MG/DL (0.2-1.0)
--- NOTE | 2020-07-03 04:30 | Diagnostic Imaging Report ---
EXAM: XR Chest, 1 View CLINICAL HISTORY: COUGH TECHNIQUE: Frontal view of the chest. COMPARISON: Chest x-ray 04/30/2011 FINDINGS/ IMPRESSION: Small nodular opacities of the right lower thorax are identified, also to a lesser extent of the left lower thorax/lingula. These findings may reflect pneumonia in the appropriate clinical setting. Chest CT can be obtained for better characterization. Follow-up imaging is recommended in 6 weeks to evaluate for stability versus resolution. There is no significant pleural effusion identified. There is no pneumothorax. The heart size is within normal limits.
[2020-07-03] MEDS ORDERED: DOXYCYCLINE MO100 MG ORAL (04:40)
[2020-07-03 05:00] VITALS: BP 136/83
--- NOTE | 2020-07-03 05:00 | NUR ---
ER DISCHARGE NOTE: Patient is cleared to be discharged per ERMD, pt is aox4, on room air, with stable vital signs. pt was given dc and prescription instructions, pt was able to verbalize understanding, pt id band and iv site removed without complications. pt is able to ambulate with steady gait. pt took all belongings.
--- NOTE | 2020-07-03 15:42 | Cardiology Report ---
APPROVED REPORT EKG Measurement Heart [id number] <Conclusion> Normal sinus rhythm Possible Left atrial enlargement Prolonged QT Abnormal ECG
== END 2020-07-03 05:03 | disposition home or self-care (01) ==
LOC: EMR 03:45
DX: R53.1 Weakness (principal); J18.9 Pneumonia, unspecified organism; R91.1 Solitary pulmonary nodule; I10 Essential (primary) hypertension
CPT/HCPCS: 36415; 71045; 80053; 81003; 81025; 83690; 85025; 93005; 96360; J7030; Z7502; 99284

== ENCOUNTER 2020-08-09 21:37 | Emergency (ER) | payer MEDICAID ==
[~2020-08-09] VITALS: Ht 157.5 cm; Wt 85.7 kg
[~2020-08-09 21:37] MED LIST changes: +DOXYCYCLINE MO100 MG ORAL
[2020-08-09 21:45] VITALS: BP 152/90
--- NOTE | 2020-08-09 21:50 | NUR ---
ED Nurse Note: Patient walked into ED c/o lower pelvic pain onset for 1 week now, [facility] and [facility] however pain has came back, patient denies any discharge or bleeding.
[2020-08-09 22:11] LABS: APPEARANCE,URINE SLIGHTLY CLOUDY; BILIRUBIN, URINE NEGATIVE (NEGATIVE); COLOR,URINE PALE YELLOW; GLUCOSE, URINE (UA) NEGATIVE (NEGATIVE); KETONES,URINE 1+ (NEGATIVE); LEUKOCYTE ESTERASE ,URINE 1+ (NEGATIVE); NITRITE,URINE NEGATIVE (NEGATIVE); PH,URINE 6 (4.5-8.0); PROTEIN,URINE NEGATIVE (NEGATIVE); UROBILINOGEN,URINE NORMAL MG/DL (0.0-1.0)
[2020-08-09] MEDS ORDERED: NITROFURANTOIN100 M2 ORAL (23:05)
[2020-08-09] MEDS ORDERED: ZOFRAN4 MG ORAL (23:05)
--- NOTE | 2020-08-09 23:08 | Emergency Room Report ---
History of Present Illness General Chief Complaint: Female Urogenital Problems Source: Patient Present Illness HPI Disclaimer: Please note that this report is being documented using DRAGON technology. This can lead to erroneous entry secondary to incorrect interpretation by the dictating instrument. HPI: 39-year female presents for evaluation of pelvic pain. Symptoms present approximately 1 week. She was [facility] a week ago discharged with fluconazole and Flagyl after diagnosis of yeast infection according to patient. Was feeling well but then developed pelvic pressure again. Does not radiate. Denies dysuria hematuria. Denies vaginal bleeding or vaginal discharge. Denies back or flank pain. Denies fever or chills. Reports nausea but denies vomiting. No other complaints at this time. 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 EOMI. Resp: Normal work of breathing Abdomen: Soft, nondistended. Tender to palpation in suprapubic region. No rebound, no masses, no guarding. No tenderness in upper quadrants. Skin: Intact. No abrasions, laceration or rash over the exposed skin MSK: Normal tone and bulk. Moving all extremities. No obvious deformity. Neuro: Awake and alert. Mentating appropriately Medical Decision Making Diagnostic Impression: Primary Impression: UTI (urinary tract infection) ER Course 39-year female presents for evaluation of lower pelvic pain. Urinalysis consi stent with urinary tract infection. Recently treated for yeast infection but denies vaginal bleeding, vaginal discharge. hCG is negative. Will start on Macrobid. Follow-up with [facility]. Instructed to return with new or worsening symptoms. Laboratory Tests Test 12/22/20 21:45 Urine Color Pale yellow Urine Appearance Slightly cloudy Urine pH 6 (4.5-8.0) Urine Specific Roulette 1.020 (1.005-1.035) Urine Protein Negative (NEGATIVE) Urine Glucose (UA) Negative (NEGATIVE) Urine Ketones 1+ (NEGATIVE) H Urine Blood 2+ (NEGATIVE) H Urine Nitrite Negative (NEGATIVE) Urine Bilirubin Negative (NEGATIVE) Urine Urobilinogen Normal MG/DL (0.0-1.0) Urine Leukocyte Esterase 1+ (NEGATIVE) H Urine RBC 2-4 /HPF (0 - 2) H Urine WBC 5-10 /HPF (0 - 2) H Urine Squamous Epithelial Cells Moderate /LPF (NONE/OCC) H Urine Bacteria Few /HPF (NONE) Urine HCG, Qualitative Negative (NEGATIVE) Last Vital Signs Date Time Temp Pulse Resp B/P (MAP) Pulse Ox O2 Delivery O2 Flow Rate FiO2 08/09/20 21:42 98.2 82 18 160/97 (118) 96 Room Air Disposition: HOME, SELF-CARE Condition: Stable Scripts Nitrofurantoin Monohyd/M-Cryst* (MACROBID 100 MG*) 100 Mg Capsule 100 MG ORAL EVERY 12 HOURS for 5 Days, #10 CAP Prov: Raghu Callaway MD 08/09/20 Ondansetron (Zofran) 4 Mg Tablet 4 MG ORAL Q8H PRN for Nausea & Vomiting, #10 TAB 0 Refills Prov: Raghu Callaway MD 08/09/20 Referrals: [facility] Patient Instructions: Urinary Tract Infection Additional Instructions: Please follow-up with your primary care doctor in the next 1 to 3 days to discuss this emergency department visit and for reevaluation. If you have any new or worsening symptoms please return to the emergency department for reevaluation. Please note that this report is being documented using E[employer] technology. This can lead to erroneous entry secondary to incorrect interpretation by the dictating instrument. Raghu Callaway MD Aug 09, 2020 23:08
[2020-08-09 23:20] VITALS: BP 142/82
--- NOTE | 2020-08-09 23:20 | NUR ---
ER DISCHARGE NOTE: Patient is cleared to be discharged per ERMD, pt is aox4, on room air, with stable vital signs. pt was given prescription instructions, pt was able to verbalize understanding, pt id band removed without complications. pt is able to ambulate with steady gait. pt took all belongings.
== END 2020-08-09 23:20 | disposition home or self-care (01) ==
LOC: EMR 22:38
DX: N39.0 Urinary tract infection, site not specified (principal); I10 Essential (primary) hypertension
CPT/HCPCS: 81003; 81025; Z7502; 99283

== ENCOUNTER 2020-09-08 20:13 | Emergency (ER) | payer MEDICAID ==
[~2020-09-08] VITALS: Ht 160 cm; Wt 90.7 kg
[~2020-09-08 20:13] MED LIST changes: +NITROFURANTOIN100 M2 ORAL
--- NOTE | 2020-09-08 20:14 | NUR ---
Not in waiting room.
[2020-09-08] MEDS ORDERED: Pantoprazole Inj IVP ONE (21:30)
--- NOTE | 2020-09-08 21:30 | NUR ---
ED Nurse Note: Patient walked into the ED with c/o chest dicomfort onset 1 week locatied midsternal, 11/26, comes and goes. Pt stated she just changed antihypertensive meds (FOREIGN tab) a week ago and was experiencing increased HR 105-110bpm. PAtient denies SOB/, N/v/d, fever/chills, no injuries/trauma. Patient is AAOx4 and ambulatory
--- NOTE | 2020-09-08 21:33 | Emergency Room Report ---
History of Present Illness General Chief Complaint: CP Source: Patient (Alondra Barbosa M.D.) Present Illness HPI Patient is a 39-year-old female past medical history of hypertension who presents to the ER complaining of 1 week of epigastric lower chest pressure. She denies any fever or chills. She denies any cough. She denies any shortness of breath. Denies any lower extremity pain or edema. She denies any OCP use. Patient states that when she was home she checked her pulse and noted that it was fast. She denies any family history of early cardiovascular disease or sudden . She denies any recent travel. She denies any dizziness or nausea associated with the pain. (Alondra Barbosa M.D.) Allergies: Coded Allergies: No Known Allergies (Unverified , 05/11/13) COVID-19 Screening Contact w/high risk pt: No Experienced COVID-19 symptoms?: No (Alondra Barbosa M.D.) Patient History Reviewed Nursing Documentation: PMH: Agreed; PSxH: Agreed (Alondra Barbosa M.D.) Nursing Documentation-PMH Hx Hypertension: Yes (Alondra Barbosa M.D.) Review of Systems All Other Systems: negative except mentioned in HPI (Alondra Barbosa M.D.) Physical Exam Sp02 EP Interpretation: reviewed, normal General Appearance: no apparent distress, alert, GCS 15, non-toxic Head: normocephalic, atraumatic Eyes: bilateral eye normal inspection, bilateral eye PERRL ENT: hearing grossly normal, normal pharynx, no angioedema, normal voice Neck: full range of motion, supple/symm/no masses Respiratory: chest non-tender, lungs clear, normal breath sounds, speaking full sentences Cardiovascular #1: tachycardia Gastrointestinal: non tender, soft, no guarding, no rebound Rectal: deferred Genitourinary: no CVA tenderness Musculoskeletal: normal range of motion, no calf tenderness, no lower extremity edema Neurologic: jigger artisan III-XII nml as tested, oriented x3 Psychiatric: no suicidal/homicidal ideation Skin: no rash Lymphatic: no adenopathy (Alondra Barbosa M.D.) Medical Decision Making Diagnostic Impression: Primary Impression: Chest pain Qualified Codes: R07.9 - Chest pain, unspecified ER Course Patient pending ER work-up, reevaluation, and final disposition. (Alondra Barbosa M.D.) ER Course This patient presents with chest pain. No evidence of ACS, PE, dissection to name a few. She was signed out to me. Labs unremarkable. Will discharge home. (Savage Campos MD) EKG Diagnostic Results Troponin ordered: Yes When was troponin ordered?: Sep 08, 2020 EKG Time: 21:29 EP Interpretation: Alondra Barbosa MD Rate: normal - 99 bpm Rhythm: NSR ST Segments: no acute changes ASA given to the pt in ED: No (Alondra Barbosa M.D.) Rhythm Strip Diag. Results Rhythm Strip Time: 21:33 EP Interpretation: yes - Alondra Barbosa MD Rate: 102 bpm Rhythm: no PVC's, no ectopy, other - Sinus tachycardia (Alondra Barbosa M.D.) Chest X-Ray Diagnostic Results Chest X-Ray Diagnostic Results : Chest X-Ray Ordered: Yes # of Views/Limited/Complete: 1 View Indication: Chest Pain EP Interpretation: Yes Interpretation: no consolidation, no effusion, no pneumothorax, no acute cardiopulmonary disease Impression: No acute disease Electronically Signed by: Savage Campos MD (Savage Campos MD) Status: improved (Savage Campos MD) Disposition: HOME, SELF-CARE Condition: Stable Signed Out To: Dr. Barkley at 2200 (Alondra Barbosa M.D.) Referrals: NON PHYSICIAN (PCP) Additional Instructions: Follow-up with your doctor in 7 days. Return if worse. Alondra Barbosa M.D. Sep 08, 2020 21:33 Savage Campos MD Sep 08, 2020 23:23
[2020-09-08 21:45] VITALS: BP 148/85
--- NOTE | 2020-09-08 22:00 | NUR ---
ED Nurse Note: Blood and urine sent to lab
--- NOTE | 2020-09-08 22:04 | Diagnostic Imaging Report ---
EXAM: XR Chest, 1 View CLINICAL HISTORY: CP TECHNIQUE: Frontal view of the chest. COMPARISON: 07/03/20 FINDINGS: No acute radiographic findings.
[2020-09-08 22:34] LABS: EOSINOPHILS % (AUTO) 1.4 % (0.0-3.0); HEMATOCRIT 38.1 % (37.0-47.0); HEMOGLOBIN 11.9 G/DL (12.0-16.0); LYMPHOCYTES % (AUTO) 47.2 % (20.0-45.0); MEAN CORPUSCULAR VOLUME 88 FL (80-99); MONOCYTES % (AUTO) 3.5 % (1.0-10.0); NEUTROPHILS % (AUTO) 46.9 % (45.0-75.0); PLATELET COUNT 195 K/UL (150-450); RED BLOOD COUNT 4.31 M/UL (4.20-5.40); RED CELL DISTRIBUTION WIDTH 14.3 % (11.6-14.8); WHITE BLOOD COUNT 7.4 K/UL (4.8-10.8)
[2020-09-08 22:46] LABS: ANION GAP 7 mmol/L (5-15); BLOOD UREA NITROGEN 11 mg/dL (7-18); CALCIUM 8.3 MG/DL (8.5-10.1); CARBON DIOXIDE 27 MMOL/L (21-32); CHLORIDE 104 MMOL/L (98-107); CREATININE 0.7 MG/DL (0.55-1.30); POTASSIUM 4.1 MMOL/L (3.5-5.1); SODIUM 138 MMOL/L (136-145)
[2020-09-08 22:50] LABS: ALANINE AMINOTRANSFERASE 18 U/L (12-78); ALBUMIN 3.9 G/DL (3.4-5.0); ALBUMIN/GLOBULIN RATIO 1.1 (1.0-2.7); ALKALINE PHOSPHATASE 60 U/L (46-116); ASPARTATE AMINO TRANSFERASE 20 U/L (15-37); BILIRUBIN,TOTAL 0.3 MG/DL (0.2-1.0)
[2020-09-08 23:34] VITALS: BP 152/95
== END 2020-09-08 23:30 | disposition home or self-care (01) ==
LOC: EMR 21:26
DX: R07.9 Chest pain, unspecified (principal); I10 Essential (primary) hypertension; Z82.49 Family history of ischemic heart disease and other diseases of the circulatory system
CPT/HCPCS: 36415; 71045; 80053; 80307; 81025; 83690; 83735; 84484; 85025; 85379; 93005; 96361; 96374; J7030; S0164; Z7502; 99284